=== PATIENT | male | born 1940 | race Two or more races ===

== ENCOUNTER 2016-11-14 17:11 | Inpatient (IN) | payer MEDICARE ==
[~2016-11-14] VITALS: Ht 167.6 cm; Wt 63.4 kg
[2016-11-14] MEDS ORDERED: PRAVACHOL20 MG PO (18:10)
[2016-11-14 18:25] VITALS: BP 151/81; BMI 23.1
--- NOTE | 2016-11-14 18:44 | NUR ---
ARRIVED TO UNIT DA . NO DISTRESS. WARM AND DRY. ADMISSION ASSESSMENT AND HISTORY DONE.
--- NOTE | 2016-11-14 19:00 | NUR ---
RECEIVED REPORT AND ASSUMED PT CARE FROM DAY SHIFT NURSE @ THIS TIME.
[2016-11-14 19:05] LABS: BASOPHILS 0.4 % (0-2); EOSINOPHILS 0.5 % (0-7); HEMATOCRIT 35.4 % (42.0-54.0); HEMOGLOBIN 12.6 g/dL (13.5-17.5); IMMATURE GRANULOCYTES 4.3 % (0-5); LYMPHOCYTES 16.1 % (15-50); MCH 33.3 pg (26.0-34.0); MCHC 35.6 g/dL (31.0-37.0); MCV 93.7 fL (80.0-100.0); MEAN PLATELET VOLUME 10.7 fL (7.4-10.4); MONOCYTES 14.7 % (2-11); PLATELET COUNT 137 10x3/uL (130-400); RBC 3.78 10x6/uL (4.20-6.10); RDW 12.5 % (11.5-14.5); WBC 10.5 10x3/uL (4.8-10.8)
[2016-11-14 19:48] LABS: ALBUMIN 3.1 g/dL (3.4-5.0); ANION GAP 9.4 mmol/L (8-16); BILIRUBIN - TOTAL 0.93 mg/dL (0.2-1.3); CARBON DIOXIDE 30.1 mmol/L (21.0-32.0); CREATININE - SERUM 5.6 mg/dL (0.6-1.3); POTASSIUM - SERUM 3.5 mmol/L (3.5-5.1); PROTEIN - SERUM 9.4 g/dL (6.4-8.2); T4 THYROXINE 8.9 ug/dL (4.7-13.3); THYROID STIMULATING HORMONE 3.5 uIU/mL (0.36-3.74)
--- NOTE | 2016-11-14 19:54 | NUR ---
SPOKE WITH DAGMAR BACA NP PIN DRAFTING MACHINE OPERATOR FOR RENAL. NOTIFIED OF CRITICAL HIGH CA++ 13.0. ALSO REPORTED BUN AND CREAT. ORDERS TO INCREASE IVF TO 125 ML/HR AND TO PLACE CACERES CATH.
[2016-11-14 20:00] VITALS: BP 138/78
[2016-11-14 20:29] LABS: ERYTHROCYTE SEDIMENTATION RATE 62 mm/hr (0-20)
--- NOTE | 2016-11-14 20:30 | NUR ---
CACERES CATH 16 FR 10 CC BULB INSERTED WITHOUT DIFFICULTY. DRAINS 600 CC CLEAR YELLOW URINE. PT TOLERATED VERY WELL. STERILITY MAINTAINED. WILL OBTAIN URINE SPECIMAN TO SEND TO LAB ORDERED. IV SITED TO LEFT UPPER ARM, NS STARTED @ 125 CC/HR. 22 GA ANGIOCATH X 1 STICK. PT ALSO TOLERATED WELL. WILL MONITOR.
--- NOTE | 2016-11-14 21:30 | NUR ---
URINE SPECI COLLECTED VIA CACERES CATH AND SENT TO LAB
[2016-11-14 23:26] LABS: APPEARANCE CLEAR (CLEAR); BILIRUBIN NEGATIVE (NEGATIVE); COLOR YELLOW (YELLOW); GLUCOSE NEGATIVE (NEGATIVE); KETONE NEGATIVE (NEGATIVE); LEUKOCYTE ESTERASE NEGATIVE (NEGATIVE); NITRITE NEGATIVE (NEGATIVE); PROTEIN TRACE mg/dL (NEGATIVE); RED CELLS - URINE 0-5 /hpf (0-5); SPECIFIC GRAVITY 1.015 (1.005-1.020); UROBILINOGEN NORMAL (NORMAL); WHITE CELLS - URINE NSEEN /hpf (0-5)
[2016-11-14 23:27] LABS: BACTERIA NONE SEEN /hpf (NONE SEEN); EPITHELIAL CELLS NSEEN /hpf (0-5)
[2016-11-15 04:47] LABS: BASOPHILS 0.3 % (0-2); EOSINOPHILS 0.8 % (0-7); HEMATOCRIT 34.3 % (42.0-54.0); HEMOGLOBIN 12.1 g/dL (13.5-17.5); IMMATURE GRANULOCYTES 2.8 % (0-5); LYMPHOCYTES 18.6 % (15-50); MCHC 35.3 g/dL (31.0-37.0); MCV 93.5 fL (80.0-100.0); MEAN PLATELET VOLUME 10.8 fL (7.4-10.4); MONOCYTES 13.9 % (2-11); NEUTROPHILS 63.6 % (40-80); PLATELET COUNT 133 10x3/uL (130-400); RBC 3.67 10x6/uL (4.20-6.10); RDW 12.4 % (11.5-14.5); WBC 9.8 10x3/uL (4.8-10.8)
[2016-11-15 04:54] LABS: ANION GAP 8.7 mmol/L (8-16); CREATININE - SERUM 5.4 mg/dL (0.6-1.3); POTASSIUM - SERUM 3.7 mmol/L (3.5-5.1)
[2016-11-15 04:56] LABS: CALCIUM 12.7 mg/dL (8.5-10.1)
[2016-11-15 05:24] VITALS: BP 136/70
--- NOTE | 2016-11-15 07:39 | NUR ---
ASSESSMENT DONE. DENIES NEEDS.
[2016-11-15 08:00] VITALS: BP 131/70
[2016-11-15 08:05] LABS: URIC ACID 13.7 mg/dL (2.6-7.2)
--- NOTE | 2016-11-15 09:26 | NUR ---
IV PATENT. FAMILY AT BS. CALL LIGHT IN REACH. WILL CONT. PLAN OF CARE.
[2016-11-15 11:52] VITALS: BP 138/57
[2016-11-15 13:09] VITALS: Ht 167.6 cm; Wt 63.4 kg
[2016-11-15 14:44] VITALS: BP 144/68
--- NOTE | 2016-11-15 18:04 | NUR ---
FAMILY AT SIDE. WITHOUT CHANGES OR DISTRESS NOTED AT THIS TIME. DENIES NEEDS.
[2016-11-15 20:00] VITALS: BP 144/56
[2016-11-16 04:00] VITALS: BP 151/64
[2016-11-16 05:53] LABS: BASOPHILS 0.2 % (0-2); EOSINOPHILS 0.6 % (0-7); HEMATOCRIT 32.7 % (42.0-54.0); HEMOGLOBIN 11.3 g/dL (13.5-17.5); LYMPHOCYTES 21.2 % (15-50); MCH 32.6 pg (26.0-34.0); MCHC 34.6 g/dL (31.0-37.0); MCV 94.2 fL (80.0-100.0); MEAN PLATELET VOLUME 11.4 fL (7.4-10.4); MONOCYTES 12.7 % (2-11); NEUTROPHILS 62.3 % (40-80); PLATELET COUNT 141 10x3/uL (130-400); RBC 3.47 10x6/uL (4.20-6.10); RDW 12.8 % (11.5-14.5); WBC 10.9 10x3/uL (4.8-10.8)
[2016-11-16 06:10] LABS: ANION GAP 10.1 mmol/L (8-16); CARBON DIOXIDE 26.3 mmol/L (21.0-32.0); CREATININE - SERUM 5.1 mg/dL (0.6-1.3); PHOSPHOROUS 5.7 mg/dL (2.5-4.9); POTASSIUM - SERUM 3.4 mmol/L (3.5-5.1)
[2016-11-16 06:12] LABS: CALCIUM 12.2 mg/dL (8.5-10.1)
--- NOTE | 2016-11-16 07:35 | NUR ---
ASSESSMENT COMPLETED. ASSESSMENT COMPLETED. TELEMERTY SHOWS SB. 02 AT 4 L/M PER NC.CACERES CATH TO EDSIDE GRAVITY BAG. LEFT FA IV. RIGHT HAND WITH 3RD FINGER AMPUTATED. DENIES ANY NEEDS. FAMILY AT [facility]. SR UP WITH CALL LIGHT IN REACH
--- NOTE | 2016-11-16 08:00 | NUR ---
RESTING QUIETLY NAD NOTED
[2016-11-16 09:28] LABS: CREATINE KINASE 26 UL (21-232); TROPONIN-I 0.018 ng/mL (0.000-0.060)
[2016-11-16 09:28] LABS: MAGNESIUM - SERUM 1.8 mg/dL (1.8-2.4); THYROID STIMULATING HORMONE 2.83 uIU/mL (0.36-3.74)
[2016-11-16 14:40] LABS: CREATINE KINASE 26 UL (21-232); TROPONIN-I 0.018 ng/mL (0.000-0.060)
--- NOTE | 2016-11-16 18:46 | NUR ---
LYING QUIETLY WITH FAMILY AT BEDSIDE. CALL LIGHT IN REACH WITH SR UP. WILL MONITOR
--- NOTE | 2016-11-16 19:20 | NUR ---
RECEIVED REPORT, WILL ASSUME CARE OF PT, PT VISITING WITH FAMILY, DENIES ANY NEEDS AT THIS TIME, BED IS LOW, SRX-2, CALL LIGHT IN REACH, WILL CONTINUE PLAN OF CARE
[2016-11-16 20:00] VITALS: BP 134/69
[2016-11-16 20:24] LABS: CREATINE KINASE 25 UL (21-232)
[2016-11-16 20:25] LABS: TROPONIN-I < 0.017 ng/mL (0.000-0.060)
--- NOTE | 2016-11-17 02:03 | NUR ---
ASSESSMENT COMPLETE, SB-TELEMTRY, CACERES IN PLACE, [id number], FAMILY AT BEDSIDE, CALL LIGHT IN REACH, WILL CONTINUE PLAN OF CARE
[2016-11-17 04:00] VITALS: BP 140/65
[2016-11-17 05:16] LABS: BASOPHILS 0.3 % (0-2); EOSINOPHILS 0.5 % (0-7); HEMATOCRIT 33.5 % (42.0-54.0); HEMOGLOBIN 11.7 g/dL (13.5-17.5); LYMPHOCYTES 20.2 % (15-50); MCH 32.7 pg (26.0-34.0); MCHC 34.9 g/dL (31.0-37.0); MCV 93.6 fL (80.0-100.0); MEAN PLATELET VOLUME 11.3 fL (7.4-10.4); MONOCYTES 13.3 % (2-11); NEUTROPHILS 62.7 % (40-80); PLATELET COUNT 128 10x3/uL (130-400); RBC 3.58 10x6/uL (4.20-6.10); RDW 12.5 % (11.5-14.5)
[2016-11-17 05:29] LABS: ANION GAP 8.9 mmol/L (8-16); CARBON DIOXIDE 28.1 mmol/L (21.0-32.0); CREATININE - SERUM 4.7 mg/dL (0.6-1.3); PHOSPHOROUS 5.3 mg/dL (2.5-4.9)
[2016-11-17 05:31] LABS: CALCIUM 12.1 mg/dL (8.5-10.1)
--- NOTE | 2016-11-17 07:30 | NUR ---
ASSESSMENT COMPLETED.TELEMERTY SHOWS A HR OF49. O2 AT 4 L/M PER NC.C/O OF NAUSEA. ZOFRAN GIVEN FOR RELIEF. FAMILY AT BED SIDE. CALL LIGHT IN REACH WITH SR UP. NS INFUSINF INTO LEFT FA.
--- NOTE | 2016-11-17 07:30 | NUR ---
RESTING QUIETLY NAD NOTED
[2016-11-17 08:11] VITALS: BP 139/70
[2016-11-17 12:19] VITALS: BP 142/69
[2016-11-17 16:27] VITALS: BP 145/69
--- NOTE | 2016-11-17 19:50 | NUR ---
RESUMED CARE OF PT, UP IN CHAIR RESPIRATIONS EVEN AND UNLABORED ON 4LPM VIA NC. LEFT UPPER ARM INFUSING NS @ 150, CACERES TO GRAVITY. 55 SB ON TELEMETRY. PLAN OF CARE DISCUSSED, WILL PROVIDE A LIST OF RENAL FRIENDLY FOODS. NO NEEDS AT THIS TIME, WILL CONTINUE TO MONITOR. SEE NURSE ASSESSMENT.
[2016-11-17 20:00] VITALS: BP 150/73
--- NOTE | 2016-11-18 01:07 | NUR ---
LYING IN BED WITH EYES CLOSED, WILL CONTINUE TO MONITOR.
[2016-11-18 04:00] VITALS: BP 126/69
[2016-11-18 04:44] LABS: BASOPHILS 0.5 % (0-2); HEMATOCRIT 33.6 % (42.0-54.0); HEMOGLOBIN 12.1 g/dL (13.5-17.5); IMMATURE GRANULOCYTES 4.5 % (0-5); LYMPHOCYTES 22.7 % (15-50); MCH 33.2 pg (26.0-34.0); MCV 92.1 fL (80.0-100.0); MEAN PLATELET VOLUME 11.4 fL (7.4-10.4); MONOCYTES 14.7 % (2-11); NEUTROPHILS 56.6 % (40-80); PLATELET COUNT 138 10x3/uL (130-400); RBC 3.65 10x6/uL (4.20-6.10); RDW 12.6 % (11.5-14.5); WBC 10.2 10x3/uL (4.8-10.8)
[2016-11-18 05:23] LABS: CALCIUM 11.5 mg/dL (8.5-10.1); CARBON DIOXIDE 30.6 mmol/L (21.0-32.0); CREATININE - SERUM 4.1 mg/dL (0.6-1.3); PHOSPHOROUS 4.6 mg/dL (2.5-4.9)
[2016-11-18 05:24] LABS: POTASSIUM - SERUM 2.6 mmol/L (3.5-5.1)
--- NOTE | 2016-11-18 06:39 | NUR ---
NO CHANGES FROM PREVIOUS ASSESSMENT, ZOFRAN IVP PER FAMILY REQUEST.
--- NOTE | 2016-11-18 07:22 | HP ---
PATIENT: HERMANN DILL MEDICAL RECORD: [id number] ACCOUNT: [id number] LOCATION:[address] : 40 ADMISSION DATE: 11/14/16 HISTORY AND PHYSICAL EXAMINATION CHIEF COMPLAINT: Lethargy and confusion. HISTORY OF PRESENT ILLNESS: The patient is a 75-year-old male, who presented to the clinic yesterday complaining of having confusion and dizziness. He had apparently been sick for the past couple of weeks. He is accompanied by his son who states that approximately 2 weeks ago, he had become extremely dehydrated, but since that time, he has had intermittent confusion. He also has a history of having been bitten by a tick. He was sent to have a CT scan of the head. Also, he had a BMP done here yesterday, which revealed a BUN of 58, his creatinine was 5.22 and his calcium was 13. His CBC was unremarkable. The patient is therefore admitted for hypercalcemia as well as acute renal failure. PAST MEDICAL HISTORY: His past history is significant that he has had a history of having a vasectomy in the past. FAMILY HISTORY: Noncontributory. HABITS: The patient is a former smoker, stopped in the 70s. He denies any ethanol use or abuse. SOCIAL HISTORY: The patient is educated through the 8th grade. He is . He has worked as a force worker in the past. REVIEW OF SYSTEMS: CONSTITUTIONAL: He denies any headaches, seizure, or syncope. Denied change in visual or auditory acuity. PULMONARY: He denies any shortness of breath, cough, congestion, history of TB, asthma, or bronchitis. CARDIOVASCULAR: No chest pain, palpitation, PND, or orthopnea. GASTROINTESTINAL: No chronic nausea, vomiting, melena, or hematochezia. GENITOURINARY: No urgency, frequency, or dysuria. PHYSICAL EXAMINATION: VITAL SIGNS: Today, his weight is 145, blood pressure 132/70, his pulse is 60 and respirations 16. He is afebrile. GENERAL: He is alert and oriented times 3. HEENT: Head is normocephalic. No lesions. Ears: TMs clear. Eyes: Pupils are equal, round and reactive to light. His extraocular movements are intact. Nasal cavity, oral cavity, oropharynx clear. NECK: Supple. There is no adenopathy. HEART: Has a regular rate and rhythm without murmurs, gallops, or rubs. LUNGS: Clear. ABDOMEN: Soft. Bowel sounds are positive. Rectal exam shows the stool guiac to be negative. ASSESSMENT: Mental status changes, a recent history of dehydration, acute renal failure and hypercalcemia. PLAN: The patient will be admitted. He will have normal saline. He will also have a parathyroid hormone drawn. He will have a sed rate and renal ultrasound. HISTORY AND PHYSICAL [id number] HERMANN DILL Nephrology consultation will be obtained. Urine cultures and urine osmolality will be obtained as well. TRANSINT:[id number] Voice Confirmation ID: [id number] DOCUMENT ID: [id number] ARY EASLEY MD at 0722 CC: [id number] DICTATION DATE: 11/14/161715 REGISTERED CLIENT ASSOCIATE: 11/14/16 175 ADM IN [id number] [place] [address]
--- NOTE | 2016-11-18 07:30 | NUR ---
AM ROUNDS- PT IN BED, DENIES ANY NEEDS AT THIS TIME. DR. GOMEZ AT BEDSIDE ASSESSING PT. BED LOW AND WHEELS LOCKED, BEDSIDE RAILS X2. CALL LIGHT IN REACH, RESP EVEN AND UNLABORED ON 4L. FAMILY AT BEDSIDE, NAD NOTED, WILL CONTINUE TO MONITOR.
--- NOTE | 2016-11-18 08:20 | NUR ---
AM MEDS GIVEN AT THIS TIME. PT IN BED, DENIES ANY NEEDS AT THIS TIME. CALL LIGHT IN REACH, FAMILY AT BEDSIDE, NAD NOTED, WILL CONTINUE TO MONITOR.
[2016-11-18 09:19] VITALS: BP 129/69
--- NOTE | 2016-11-18 09:43 | NUR ---
ADMINISTERED 4MG OF ZOFRAN FOR NAUSEA. PT DENIES ANY NEEDS AT THIS TIME. CALL LIGHT IN REACH, NAD NOTED, WILL CONTINUE TO MONITOR.
--- NOTE | 2016-11-18 10:45 | NUR ---
PT TRANSFERED TO CT, VIA BED, NAD NOTED.
--- NOTE | 2016-11-18 10:58 | NUR ---
PT TRANSFERED BACK TO ROOM, NAD NOTED.
[2016-11-18 12:00] VITALS: BP 137/72
--- NOTE | 2016-11-18 15:14 | NUR ---
PT IN BED, WITH EYES CLOSED, AT BEDSIDE, RESP EVEN AND UNLABORED, NAD NOTED, WILL CONTINUE TO MONITOR.
[2016-11-18 16:00] VITALS: BP 149/73
[2016-11-18 17:02] LABS: ANION GAP 6.6 mmol/L (8-16); CALCIUM 11.7 mg/dL (8.5-10.1); CARBON DIOXIDE 32.9 mmol/L (21.0-32.0); CREATININE - SERUM 4.2 mg/dL (0.6-1.3); MAGNESIUM - SERUM 1.7 mg/dL (1.8-2.4)
[2016-11-18 17:07] LABS: POTASSIUM - SERUM 3.5 mmol/L (3.5-5.1)
[2016-11-18 19:00] VITALS: BP 156/85
--- NOTE | 2016-11-18 19:28 | NUR ---
PT IN BED SURROUNDED BY FAMILY MEMEBERS AT BEDSIDE. DENIES NEEDS AT THIS TIME WILL CONTINUE TO MONITOR
[2016-11-19] VITALS: BP 140/71
--- NOTE | 2016-11-19 03:31 | NUR ---
RESTING IN BED WITH NO DISTRESS. RESPS EVEN/NONLABORED. NO DISTRESS.
[2016-11-19 04:00] VITALS: BP 139/70
[2016-11-19 04:34] LABS: EOSINOPHILS 0.7 % (0-7); HEMOGLOBIN 12.7 g/dL (13.5-17.5); IMMATURE GRANULOCYTES 4.5 % (0-5); LYMPHOCYTES 27.5 % (15-50); MCH 33.2 pg (26.0-34.0); MCHC 35.3 g/dL (31.0-37.0); MEAN PLATELET VOLUME 11.3 fL (7.4-10.4); MONOCYTES 16.9 % (2-11); NEUTROPHILS 49.4 % (40-80); PLATELET COUNT 143 10x3/uL (130-400); RBC 3.83 10x6/uL (4.20-6.10); RDW 12.7 % (11.5-14.5); WBC 12.5 10x3/uL (4.8-10.8)
[2016-11-19 04:42] LABS: ANION GAP 8.6 mmol/L (8-16); CARBON DIOXIDE 32.4 mmol/L (21.0-32.0); CREATININE - SERUM 4.2 mg/dL (0.6-1.3); PHOSPHOROUS 4.4 mg/dL (2.5-4.9)
[2016-11-19 04:43] LABS: CALCIUM 12.9 mg/dL (8.5-10.1)
--- NOTE | 2016-11-19 07:30 | NUR ---
REPORT RECIEVED. PT RESTING QUIETLY, RR EVEN AND UNLABORED. [facility], CACERES CATHETER DRAINING TO GRAVITY. PT REQUESTED ZOFRAN, GIVEN. WILL CTM.
[2016-11-19 08:10] VITALS: BP 133/67
[2016-11-19 12:04] VITALS: BP 144/75
--- NOTE | 2016-11-19 15:14 | NUR ---
Nutrition follow-up: Diet: Renal PO intake ~60% of meals labs reviewed Wt: 135# +BM PO intake fair to good at meals RDN following.
[2016-11-19 15:59] VITALS: BP 145/72
--- NOTE | 2016-11-19 16:43 | NUR ---
Patient Name: HERMANN DILL Admission Status: Urgent Accout number: [id number] Admission Date: 11-14-2016 : 1940 Admission Diagnosis:OTHER FATIGUE Attending: BÁRBARA Current LOS: 5 Anticipated DC Date: Planned Disposition: Home Primary Insurance: MEDICARE A & B Discharge Planning Comments: * Is the patient Alert and Oriented? Yes 0 * How many steps to enter\exit or inside your home? 0-O /1-I 0 * PCP DR. EASLEY 0 * Pharmacy [facility] [address] 0 * Preadmission Environment Home with Family 0 * ADLs Independent 0 * Equipment None 0 * Other Equipment NO MEDICAL EQUIPMENT PROVIDER PREFERENCE 0 * List name and contact numbers for known caregivers / representatives who currently or will assist patient after discharge: CHUCHO DILL, SON, 0 * Community resources currently utilized None 0 * Please name any agencies selected above. NONE 0 * Additional services required to return to the preadmission environment? No 0 * Can the patient safely return to the preadmission environment? Yes 0 * Has this patient been hospitalized within the prior 30 days at any hospital? No 0 CM MET WITH PT, PT'S SPOUSE AND SON IN ROOM TO DISCUSS DISCHARGE PLANNING AND NEEDS. PT SLEEPING VERY SOUNDLY AND DID NOT AROUSE DURING ASSESSMENT, PT'S SPOUSE AND SON, REBECA, PARTICIPATED IN THE INITIAL ASSESSMENT. FAMILY REPORTS PT LIVING AT HOME INDEPENDENTLY WITH SPOUSE AND ADULT SON. PT HAS NO MEDICAL EQUIPMENT AND NO OUTSIDE SERVICES ASSISTING IN THE HOME. CM DISCUSSED AVAILABILITY OF HOME HEALTH, REHAB SERVICES AND MEDICAL EQUIPMENT. FAMILY UNSURE OF DISCHARGE NEEDS AT THIS TIME, THINK PT MAY BENEFIT FROM A ROLLING WALKER WITH A SEAT FOR HOME USE. PT HAS BEEN UP TO CHAIR AND UP TO THE BATHROOM HERE AT THE HOSPITAL. PT HAS FAMILY SUPPORT NEEDED AT HOME. PT USUALLY SPEAKS AND UNDERSTANDS [place] BUT ACCORDING TO THE FAMILY, THIS HAS DEGRADED SINCE PT'S ILLNESS. PT'S PRIMARY LANGUAGE IS [place]. PT'S SPOUSE DOES SPEAK AND UNDERSTAND [place] ON A LIMITED BASIS. PT'S SON REPORTS FAMILY WILL PICK PT UP FOR DISCHARGE HOME. FAMILY REPORTS PLAN FOR PT TO DISCHARGE HOME. FAMILY UNSURE OF DISCHARGE NEEDS AT THIS TIME, THINK PT MAY BENEFIT FROM A ROLLING WALKER WITH A SEAT FOR HOME USE. CM TO FOLLOW AND ASSIST NEEDED. Energy Derivatives Trader: Tulio Briseno
--- NOTE | 2016-11-19 19:52 | NUR ---
RECEIVED REPORT, WILL ASSUME CARE OF PT, PT VISITING WITH FAMILY, DENIES ANY NEEDS AT THIS TIME, BED IS LOW, SRX2, CALL LIGHT IN REACH, WILL CONTINUE PLAN OF CARE
[2016-11-19 20:00] VITALS: BP 159/77
[2016-11-20 04:00] VITALS: BP 139/72
--- NOTE | 2016-11-20 05:00 | NUR ---
PT RESTING IN BED WITH NO DISTRESS. MONITOR AND CPOC.
[2016-11-20 05:28] LABS: BASOPHILS 0.5 % (0-2); EOSINOPHILS 0.6 % (0-7); HEMATOCRIT 35.4 % (42.0-54.0); HEMOGLOBIN 12.4 g/dL (13.5-17.5); IMMATURE GRANULOCYTES 4.8 % (0-5); LYMPHOCYTES 21.8 % (15-50); MCH 32.8 pg (26.0-34.0); MCV 93.7 fL (80.0-100.0); MEAN PLATELET VOLUME 11.5 fL (7.4-10.4); MONOCYTES 8.1 % (2-11); NEUTROPHILS 64.2 % (40-80); PLATELET COUNT 142 10x3/uL (130-400); RBC 3.78 10x6/uL (4.20-6.10); RDW 12.7 % (11.5-14.5); WBC 10.9 10x3/uL (4.8-10.8)
[2016-11-20 06:05] LABS: ALBUMIN 2.7 g/dL (3.4-5.0); BILIRUBIN - TOTAL 1.15 mg/dL (0.2-1.3); CARBON DIOXIDE 28.8 mmol/L (21.0-32.0); CREATININE - SERUM 3.9 mg/dL (0.6-1.3); POTASSIUM - SERUM 3.8 mmol/L (3.5-5.1); PROTEIN - SERUM 10.1 g/dL (6.4-8.2)
[2016-11-20 06:12] LABS: PHOSPHOROUS 5.6 mg/dL (2.5-4.9)
[2016-11-20 06:13] LABS: CALCIUM 12.6 mg/dL (8.5-10.1)
--- NOTE | 2016-11-20 07:32 | NUR ---
AM ROUNDS- PT IN BED, WITH EYES CLOSED, AT BEDSIDE. BED LOW AND WHEELS LOCKED, BEDSIDE RAILS X2, CALL LIGHT IN REACH. LT UPPER ARM INFUISNG NS+20KCL AT 125. RESP EVEN AND UNLABORED ON RA. NAD NOTED, WILL CONTINUE TO MONITOR.
[2016-11-20 08:00] VITALS: BP 128/71
[2016-11-20 08:14] LABS: INR 1.18 (0.85-1.17); PROTIME 14.8 SECONDS (11.6-15.0)
[2016-11-20 08:15] LABS: APTT 31.5 SECONDS (22.8-39.4)
--- NOTE | 2016-11-20 08:44 | NUR ---
AM MEDS GIVEN AT THIS TIME, EXCEPT FOR PO MEDS. PT IN BED, DNEIES ANY NEEDS AT THIS TIME. CALL LIGHT IN REACH, FAMILY AT BEDSIDE, NAD JACKELINED, WILL CONTINUE TO MONITOR.
--- NOTE | 2016-11-20 11:09 | NUR ---
PT TRANSFERED TO SPECIALS VIA BED, NAD NOTED.
--- NOTE | 2016-11-20 11:52 | NUR ---
RECEIVED PT BACK TO ROOM 2126, VIA BED, NO BLEEDING NOTED TO RT ILIAC AREA. VITAL SIGNS STABLE, PT STILL DROWSY FROM MEDS GIVEN IN SPECIALS. PT DENIES ANY PAIN OR NEEDS AT THIS TIME. AND OTHER FAMILY AT BEDSIDE, NAD NOTED, WILL CONTINUE TO MONITOR.
[2016-11-20 15:23] VITALS: BP 128/69
--- NOTE | 2016-11-20 17:45 | NUR ---
RECEIVED REPORT, WILL ASSUME CARE OF PT, PT VISITING WITH FAMILY, DENIES ANY NEEDS, BED IS LOW, SRX2, CALL LIGHT IN REACH, WILL CONTINUE PLAN OF CARE
[2016-11-20 19:00] VITALS: BP 129/63
--- NOTE | 2016-11-20 19:09 | NUR ---
CALLED PHARMACY AND SPOKE WITH PRISCILLA, ASKED HIM IF ARIDIA AND NS+20KCL WAS COMPATIBLE. PRISCILLA STATED THAT THEY ARE COMPATIBLE AT Y SITE.
[2016-11-21] VITALS: BP 146/76
[2016-11-21 04:00] VITALS: BP 124/57
--- NOTE | 2016-11-21 04:30 | NUR ---
BUSINESS ADMINISTRATION INSTRUCTOR AT BEDSIDE TO OBTAIN VITALS, CALL LIGHT IN REACH. WILL CONTINUE TO MONITOR.
--- NOTE | 2016-11-21 05:01 | NUR ---
ASSESSMENT COMPLETE, SEE FLOWSHEET, BED IS LOW, SRX2, CALL LIGHT IN REACH, FAMILY AT BEDSIDE
[2016-11-21 05:54] LABS: BASOPHILS 0.1 % (0-2); EOSINOPHILS 0 % (0-7); HEMOGLOBIN 11.4 g/dL (13.5-17.5); IMMATURE GRANULOCYTES 1.7 % (0-5); LYMPHOCYTES 13.1 % (15-50); MCH 32.7 pg (26.0-34.0); MCHC 34.5 g/dL (31.0-37.0); MCV 94.6 fL (80.0-100.0); MEAN PLATELET VOLUME 11.8 fL (7.4-10.4); MONOCYTES 5.3 % (2-11); NEUTROPHILS 79.8 % (40-80); PLATELET COUNT 134 10x3/uL (130-400); RBC 3.49 10x6/uL (4.20-6.10); RDW 12.7 % (11.5-14.5); WBC 13.5 10x3/uL (4.8-10.8)
[2016-11-21 06:15] LABS: ANION GAP 12.9 mmol/L (8-16); CALCIUM 11.5 mg/dL (8.5-10.1); CARBON DIOXIDE 26.2 mmol/L (21.0-32.0); CREATININE - SERUM 4.2 mg/dL (0.6-1.3); POTASSIUM - SERUM 4.1 mmol/L (3.5-5.1)
--- NOTE | 2016-11-21 07:15 | NUR ---
AM ROUNDING DONE WITH PATIENT APPEARING TO BE ASLEEP. RESP ARE EVEN AND NON LABORED. FEMALE MEMBER IN CHAIR. ON HEART MONITOR SHOWING SB, HR 55. ON ROOM AIR. LEFT UPPER ARM SEEN WITH NS W 20 K+ INFUSING AT 125 CC/HR. CACERES CATH SEEN PATENT WITH CLEAR YELLOW URINE. WILL CPOC.
[2016-11-21 08:00] VITALS: BP 139/61
--- NOTE | 2016-11-21 08:40 | NUR ---
EATING BREAKFAST WITH LOTS OF FAMILY MEMBERS IN ROOM IV FLUIDS DECREASED TO 75 CC/HR ORDERED. WILL COME BACK AND GIVE LOVENOX WHEN FINISHED EATING AND REMOVE CACERES AT THAT TIME.
--- NOTE | 2016-11-21 10:08 | NUR ---
CACERES CATH REMOVED ORDERED. INSTRUCTED PATIENT TO USE THE URINAL TO VOID IN, FAMILY TRANSLATED THIS AND PATIENT SHAKES HIS HEAD YES THAT HE UNDERSTANDS.
[2016-11-21 12:00] VITALS: BP 129/60
[2016-11-21 13:18] LABS: IMMUNOGLOBULIN A 72 mg/dL (61-437); IMMUNOGLOBULIN G 5579 mg/dL (700-1600); IMMUNOGLOBULIN M 23 mg/dL (15-143)
--- NOTE | 2016-11-21 13:23 | NUR ---
FAMILY MEMBERS AT BEDSIDE. PATIENT HAS USED THE URINAL TO VOID. WILL CPOC.
--- NOTE | 2016-11-21 14:23 | NUR ---
Patient Name: HERMANN DILL Encounter No: [id number] : 1940 Primary Insurance: MEDICARE A & B Anticipated DC Date: Planned Disposition: Home WITH HOME HEALTH External Planned Provider: WAITING PT/FAMILY CHOICE DCP follow-up note: CM RECEIVED ORDERS FOR HOME HEALTH AND MEDICAL EQUIPMENT. CM MET WITH PT AND SPOUSE IN ROOM, DISCUSSED HOME HEALTH OPTIONS WELL MEDICAL EQUIPMENT PROVIDERS AVAILABLE IN [place]. HOME HEALTH CHOICE LETTER AND CM CONTACT INFORMATION PROVIDED. PT'S SPOUSE REPORTS SHE WILL DISCUSS OPTIONS WITH ONE OF HER SON'S AND NOTIFY CM OF THE CHOICE FOR HOME HEALTH AND MEDICAL EQUIPMENT PROVIDERS. CM PROVIDED THE IMPORTANT MESSAGE FROM MEDICARE IN [place]; BOTH PT AND SPOUSE REPORTED ABILITY TO READ AND UNDERSTAND [place]. CM DISCUSSED THE MESSAGE. CM WAITING PT/FAMILY CHOICES FOR HOME HEALTH AND MEDICAL EQUIPMENT PROVIDERS AND WILL COMPLETE ARRANGEMENTS WHEN CHOICE IS MADE. Tulio Briseno, CASE MANAGEMENT
[2016-11-21 15:25] LABS: SPE - A/G RATIO 0.6 (0.7-1.7); SPE - ALBUMIN 3.5 g/dL (2.9-4.4); SPE - ALPHA-1 GLOBULIN 0.3 g/dL (0.0-0.4); SPE - ALPHA-2 GLOBULIN 0.8 g/dL (0.4-1.0); SPE - BETA GLOBULIN 0.9 g/dL (0.7-1.3); SPE - GAMMA GLOBULIN 3.6 g/dL (0.4-1.8); SPE - M-SPIKE 3.1 g/dL (Not Observed)
[2016-11-21 16:00] VITALS: BP 125/60
--- NOTE | 2016-11-21 17:32 | NUR ---
FAMILY AT BEDSIDE, DENIES ANY NEEDS WHEN ASKED. WILL CPOC.
[2016-11-21 19:00] VITALS: BP 139/69
--- NOTE | 2016-11-21 19:33 | NUR ---
PT SITTING UP IN CHAIR SURROUNDED BY FAMILY MEMBERS DENIES NEEDS AT THIS TIME WILL CONTINUE TO MONITOR
[2016-11-22 04:00] VITALS: BP 117/57
[2016-11-22 04:33] LABS: BASOPHILS 0 % (0-2); EOSINOPHILS 0 % (0-7); HEMATOCRIT 29.4 % (42.0-54.0); HEMOGLOBIN 10.1 g/dL (13.5-17.5); IMMATURE GRANULOCYTES 0.7 % (0-5); LYMPHOCYTES 5.9 % (15-50); MCH 32.2 pg (26.0-34.0); MCHC 34.4 g/dL (31.0-37.0); MCV 93.6 fL (80.0-100.0); MEAN PLATELET VOLUME 11.4 fL (7.4-10.4); NEUTROPHILS 90.4 % (40-80); PLATELET COUNT 114 10x3/uL (130-400); RBC 3.14 10x6/uL (4.20-6.10); RDW 12.7 % (11.5-14.5); WBC 12.1 10x3/uL (4.8-10.8)
[2016-11-22 05:23] LABS: ALBUMIN 2.3 g/dL (3.4-5.0); ANION GAP 11.4 mmol/L (8-16); BILIRUBIN - TOTAL 0.52 mg/dL (0.2-1.3); CALCIUM 9.7 mg/dL (8.5-10.1); CARBON DIOXIDE 22.4 mmol/L (21.0-32.0); CREATININE - SERUM 3.8 mg/dL (0.6-1.3); PHOSPHOROUS 5.2 mg/dL (2.5-4.9); POTASSIUM - SERUM 3.8 mmol/L (3.5-5.1); PROTEIN - SERUM 8.3 g/dL (6.4-8.2)
--- NOTE | 2016-11-22 07:10 | NUR ---
PT SITTING UP IN BED SLEEPING WITH AT BEDSIDE BOTH ARROUSE EASILY DENY NEEDS WILL CONT TO MONITOR
[2016-11-22 08:25] VITALS: BP 130/61
--- NOTE | 2016-11-22 10:07 | NUR ---
WAITING ON PHARM TO BRING UP PT KAMILLERON
[2016-11-22 12:04] VITALS: BP 137/68
--- NOTE | 2016-11-22 12:53 | NUR ---
Patient Name: HERMANN DILL Encounter No: [id number] : 1940 Primary Insurance: MEDICARE A & B Anticipated DC Date: 11-22-2016 Planned Disposition: Home with Home Health External Planned Provider: [facility] DCP follow-up note: CM MET WITH PT'S SON, REBECA, AT [facility] TO DISCUSS HOME HEALTH AND MEDICAL EQUIPMENT PROVIDER PREFERENCES. REBECA REPORTS THAT CHUCHO, ONE OF HIS BROTHER'S WILL MAKE THE CHOICE AND LET CM KNOW. REBECA REPORTS THAT HE SAW THE NOTICE FROM MEDICARE IN THE ROOM, BUT PT'S CHILDREN READ AND UNDERSTAND [place] BETTER THAN [place] CITIZEN. CM PROVIDED AND EXPLAINED IMPORTANT MESSAGE FROM MEDICARE TO REBECA. CM RECEIVED ORDER TO COMPLETE DISCHARGE ARRANGMENTS FOR DISCHARGE TODAY. CM MET WITH PT AND SPOUSE IN ROOM, DISCUSSED CHOICES FOR PROVIDERS. PT'S SPOUSE DIRECTED CM TO CALL THEIR SON, CHUCHO. CM CALLED CHUCHO AT [phone], WHO DIRECTED CM TO CALL HIS , MED AT [phone]. CM CALLED MED WHO CONSULTED WITH FAMILY MEMBERS AND NOTIFIED CM THAT THEY WANT [facility] AND [facility]. FAMILY WILL SEEK TO BUY A SHOWER CHAIR PRIVATELY. THEY ARE AWARE THAT THERE IS 20% COPAY FOR MEDICAL EQUIPMENT. CM DISCUSSED THIS WITH PT AND SPOUSE, PT SIGNED CHOICE FOR [facility]. CM RECEIVED CALL FROM NAE[facility] OF [facility], , WHO REPORTS THAT SHE HAS RECEIVED CALL FROM FAMILY REGARDING NEED FOR HOME HEALTH AND [facility] WILL ACCEPT PT FOR ADMISSION TOMORROW. CM FAXED REFERRAL TO [facility] AT [phone]. CM CALLED [facility], , DISCUSSED DME REFERRAL WITH [facility], WHO WILL ARRANGE HOSPITAL DELIVERY OF EQUIPMENT TODAY. CM FAXED REFERRAL TO [facility], . CM RECEIVED CALL FROM MED WHO REPORTS THAT FAMILY WILL COME TO HOSPITAL SHORTLY TO TRANSPORT PT AND PT'S SPOUSE HOME. CM FAXED DISCHARGE INFORMATION TO [facility] AT [phone]. NO FURTHER NEEDS IDENTIFIED. Tulio Briseno, CASE MANAGEMENT
--- NOTE | 2016-11-22 13:19 | NUR ---
WENT OVER DC INSTRUCTIONS WITH PT AND FAMILY PT AND FAMILY BOTH VERBALIZES UNDERSTANDING. DC PIV WITH CATH TIP INTACT. DC TELE AND RETURNED TO [facility]. PT AWAITING HIS EQUIPMENT TO BE DELIVERED THEN WILL BE READY TO DC HOME.
--- NOTE | 2016-11-22 13:55 | NUR ---
PT WAS WHEELED OUT TO FRONT ENTRANCE BY JEWELRY MANAGER SON PICKED PT UP WITH PT .
[2016-11-23 07:23] LABS: IMMUNOGLOBULIN D <0.12 mg/dL (<14.11)
[2016-11-26 09:14] LABS: IMMUNOFIXATION Note: (()); IMMUNOGLOBULIN A 57 mg/dL (61-437); IMMUNOGLOBULIN G 4801 mg/dL (700-1600); IMMUNOGLOBULIN M 19 mg/dL (15-143)
--- NOTE | 2016-11-26 15:47 | EC ---
PATIENT:HERMANN DILL DATE OF SERVICE: 11/14/16 SEX: M MEDICAL RECORD: [id number] DATE OF : [birth year] LOCATION:D.M2 D.212 AGE OF PATIENT: 75 ADMISSION DATE: 11/14/16 REFERRING PHYSICIAN: INTERPRETING PHYSICIAN: RACHEL LIM MD ECHOCARDIOGRAM REPORT ECHO CHARGES 4 ECHO COMPLETE CLINICAL DIAGNOSIS: BRADYCARDIA ECHOCARDIOGRAPHIC MEASUREMENTS (adult normal given) AC root (d.<3.7cm) 3.6 cm LV Septum d (<1.2 cm> 1.5 cm Valve Excursion 2.0 cm LV Septum (systole) 1.9 cm Left Atria (s.<4.0cm> 3.0 cm LVPW d(<1.2cm) 1.3 cm RV (d.<2.3cm) 2.7 cm LVPW (sytole) 1.9 cm LV diastole(<5.6CM) 4.3 cm MV E-F(>70mm/sec) cm LV systole 2.4 cm LVOT Diameter 1.7 cm MV exc.(>10mm) cm Est.ejection fraction (50-75%) % Pericardial Effusion N DOPPLER: LVIT cm/sec A 52.0 cm/sec E 70.0 cm/sec LA cm/sec RVSP 44.0 mmHg LVOT 132 cm/sec AOP1/2T m/s Asc. Ao 132 cm/sec RVOT 69.0 cm/sec RA cm/sec PA 93.0 cm/sec AV Gradient Peak 7.0 mmHg AV Mean 3.7 mmHg AV Area 2.0 cm MV Gradient Peak 3.4 mmHg MV Mean 0.96 mmHg MV Area cm COMMENTS: Ranger Aide: Baron MCDANIELOE Tow Mate: Guicho Lim TAPE# PACS DATE OF SERVICE: 11/16/2016 FINDINGS: 1. The left ventricle is normal size, normal function with an ejection fraction of 60% and flow characteristics are normal. 2. The right ventricle is normal size, normal function. 3. The mitral valve is structurally normal with trace mitral regurgitation. 4. The aortic valve appears to be trileaflet with normal function. No evidence of aortic regurgitation or aortic stenosis. 5. The pulmonic valve is not well visualized, but structurally appears to be ECHOCARDIOGRAM REPORT [id number] HERMANN DILL normal. 6. The tricuspid valve has mild to moderate tricuspid regurgitation with an RVSP of 40 mmHg consistent with mild pulmonary hypertension. 7. The IVC appears to be normal size, not well visualized. CONCLUSIONS: The patient has an overall normal echocardiogram for age. TRANSINT:[id number] Voice Confirmation ID: [id number] DOCUMENT ID: [id number] 11/22/2016 Edited to correct date of service, dm. RACHEL LIM MD at 1547 CC: [id number] DICTATION DATE: 11/18/16 0736 SEGMENTAL PAVER INSTALLER: 11/18/16 1153 DIS IN 11/22/16 [facility] [address] [facility] [place] [address]
== END 2016-11-22 13:56 | disposition home health service (06) | DRG 841 ==
LOC: D.M2 17:11 → D.SDCHOLD 11-15 22:08 → D.M2 11-15 22:10
PROVIDERS: Family Medicine; Internal Medicine Hematology & Oncology; Internal Medicine Nephrology; Specialist; ADMIT Family Medicine
PROC: 0T9B70Z Drainage of Bladder with Drainage Device, Via Natural or Artificial Opening (ICD-10-PCS; principal; 2016-11-14)
DX: C90.00 Multiple myeloma not having achieved remission (principal); N17.9 Acute kidney failure, unspecified; E83.52 Hypercalcemia; E78.5 Hyperlipidemia, unspecified; R00.1 Bradycardia, unspecified; M85.80 Other specified disorders of bone density and structure, unspecified site; R41.0 Disorientation, unspecified; N28.1 Cyst of kidney, acquired; Z87.891 Personal history of nicotine dependence